=== PATIENT | male | born 1970 | race Caucasian/White ===

== ENCOUNTER 2017-06-01 00:46 | Observation (INO) | payer OTHER ==
[2017-06-01] MEDS ORDERED: HYDROCODONE/APAP 5/325 TAB PO ONE (01:08)
[2017-06-01] MEDS ORDERED: ONDANSETRON 4 MG/2 ML VIAL IVP ONE (01:19)
[2017-06-01] MEDS ORDERED: fentaNYL 100 MCG/2 ML INJ IVP ONE (01:19)
--- NOTE | 2017-06-01 01:27 | EDPHY ---
H & P Stated Complaint: laceration to left ring finger s/p crush between wall and cabnit HPI/ROS: HPI CHIEF COMPLAINT: Left 3rd digit pain swelling possible infection HISTORY OF PRESENT ILLNESS: This patient is a 46-year-old male, otherwise healthy, denies any significant medical history does not take any daily medications nondiabetic he presents emergency room with pain and swelling redness to the left 3rd digit. Patient tells me that on Friday he was carrying a piece of furniture this piece of furniture pinch his hand against a wall he sustained a laceration to the palmar surface diagonally across the base of the 3rd digit. He did not seek any medical attention. He had a Band-Aid over this covering it. He now presents emergency room because he has worsening 3rd digit pain over today. No fever. However of note he presents emergency room with a finger that is held in flexed position, it is sausage digit like, mild redness and warmth and has exquisite tenderness down the tendon, also tenderness with extension concerning for acute flexor tenosynovitis. He does tell me his tetanus shot is up-to-date. He has not seen a pus from the site. Patient is right-hand dominant. 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 Exam Constitutional triage nursing summary reviewed, vital signs reviewed, awake/ alert. Eyes normal conjunctivae and sclera, EOMI, PERRLA. HENT normal inspection, atraumatic, moist mucus membranes, no epistaxis, neck supple/ no meningismus, no raccoon eyes. Respiratory clear to auscultation bilaterally, normal breath sounds, no respiratory distress, no wheezing. Cardiovascular rate normal, regular rhythm, no murmur, no edema, distal pulses normal. Gastrointestinal soft, non-tender, no rebound, no guarding, normal bowel sounds, no distension, no pulsatile mass. Genitourinary no CVA tenderness. Musculoskeletal left hand: 3rd digit is swollen rather diffusely, there is a laceration present palmar surface the base of the 3rd digit 3rd digit is swollen sausage like, it is warm and erythematous there is no mariela pus. It is held in flexion, has exquisite pain with extension. no midline vertebral tenderness, full range of motion, no calf swelling, no tenderness of extremities , no meningismus, good pulses, neurovascularly intact. Skin pink, warm, & dry, no rash, skin atraumatic. Neurologic awake, alert and oriented x 3, AAOx3, moves all 4 extremities equally, motor intact, sensory intact, CN II-XII intact, normal cerebellar, normal vision, normal speech. Psychiatric normal mood/affect. Heme/Lymph/Immune no lymphadenopathy. Differential Diagnosis: Includes but is not limited to in a particular order, flexor tenosynovitis, finger infection, bony abnormality, osteomyelitis, Medical Decision Making: Plan for this patient digital x-ray, pain control, IV establishment blood draw, will touch base with Hand surgery as I feel that this patient is flexor tenosynovitis that needs emergent washout. Re-evaluation: 0126AM: I spoke with Dr. Clemons with [facility] he has agreed to come and see and evaluate the patient at this time I did explain concerned about flexor tenosynovitis and hand infection. He agrees with my assessment and will come and see and evaluate the patient most likely take the patient to the operating room for washout. He requested that I start an IV and do basic blood work however hold off on antibiotics so he can get appropriate culture. Patient updated about this and is agreeable for plan. Agrees for admission and OR. ED x-ray left 3rd digit. Negative for fracture. Negative for osteomyelitis. However visible soft tissue swelling. Image interpreted by myself Source: Patient - Personal History Current Tetanus/Diphtheria Vaccine: Yes Current Tetanus Diphtheria and Acellular Pertussis (TDAP): Yes Tetanus Vaccine Date: WITHIN 10 YRS - Medical/Surgical History Hx Asthma: No Hx Chronic Respiratory Disease: No Hx Diabetes: No Hx Cardiac Disease: No Hx Renal Disease: No Hx Cirrhosis: No Hx Alcoholism: No Hx HIV/AIDS: No Hx Splenectomy or Spleen Trauma: No Other PMH: denies - Social History Smoking Status: Never smoked Constitutional: Initial Vital Signs Temperature (C) 36.9 C 06/01/17 00:47 Heart Rate 80 06/01/17 00:47 Respiratory Rate 18 06/01/17 00:47 Blood Pressure 107/95 H 06/01/17 00:47 O2 Sat (%) 94 06/01/17 00:47 O2 Delivery Mode Room Air Allergies/Adverse Reactions: No Known Allergies Allergy (Unverified 06/01/17 00:50) Home Medications: Medication Instructions Recorded Cephalexin [Keflex (*)] 500 mg PO Q6HRS #0 cap 06/01/17 Hydrocodone/APAP 5/325 [[place] 2 tab PO Q4HRS PRN #0 tab 06/01/17 5/325 (*)] Medical Decision Making - Data Points Laboratory Results: Laboratory Results 06/01/17 01:00 06/01/17 01:00 Medications Given: Discontinued Medications Hydrocodone Bitart/Acetaminophen ([place] 5/325) 1 tab PO EDNOW ONE Stop: 06/01/17 01:09 Last Admin: 06/01/17 01:40 Dose: Not Given Fentanyl (Sublimaze) 50 mcg IVP EDNOW ONE Stop: 06/01/17 01:20 Last Admin: 06/01/17 01:23 Dose: 50 mcg Cefazolin Sodium/Dextrose (Ancef 2 Gm (Premix)) 100 mls @ 200 mls/hr IV 0300, 1100,1900 GIOVANNY PRN Reason: Protocol Stop: 07/01/17 10:59 Last Admin: 06/01/17 10:32 Dose: 100 mls Ondansetron HCl (Zofran) 4 mg IVP EDNOW ONE Stop: 06/01/17 01:20 Last Admin: 06/01/17 01:23 Dose: 4 mg Departure - Departure Disposition: [facility] Acute Clinical Impression: Flexor tenosynovitis of finger Condition: Good
[2017-06-01 01:34] LABS: % IMMATURE GRANULYOCYTES 0.2 % (0.0-1.1); ABSOLUTE IMMATURE GRANULOCYTES 0.02 10^3/uL (0.00-0.10); ADD DIFF? NO; ADD MORPH? NO; ADD SCAN? NO; ATYPICAL LYMPHOCYTE FLAG 10 (0-99); FRAGMENT RBC FLAG 0 (0-99); HEMATOCRIT 41.1 % (40.0-51.0); HEMOGLOBIN 14.3 g/dL (13.7-17.5); LEFT SHIFT FLG 0 (0-99); LIPEMIA HEMOLYSIS FLAG 90 (0-99); MEAN CELL HEMOGLOBIN 31.9 pg (27.9-34.1); MEAN CELL HEMOGLOBIN CONCENTR. 34.8 g/dL (32.4-36.7); MEAN CELL VOLUME 91.7 fL (81.5-99.8); MEAN PLATELET VOLUME 10.4 fL (8.7-11.7); PLATELET CLUMPS FLAG 10 (0-99); PLATELET COUNT 267 10^3/uL (150-400); RED BLOOD CELL COUNT 4.48 10^6/uL (4.40-6.38); RED CELL DISTRIBUTION WIDTH 12.5 % (11.5-15.2)
[2017-06-01 01:39] LABS: ANION GAP 14 mEq/L (8-16); C-REACTIVE PROTEIN < 5.0 mg/L (<10.0); CALCIUM 9.7 mg/dL (8.5-10.4); CARBON DIOXIDE 22 mEq/l (22-31); CHLORIDE 108 mEq/L (97-110); GLOMERULAR FILTRATION RATE > 60; GLUCOSE 91 mg/dL (70-100); POTASSIUM 4.1 mEq/L (3.5-5.2); SODIUM 144 mEq/L (134-144)
[2017-06-01 01:49] LABS: SEDIMENTATION RATE 3 MM/HR (0-15)
--- NOTE | 2017-06-01 02:23 | PDANEPAE ---
ANE History of Present Illness Left third finger I and D ANE Past Medical History - Cardiovascular History Hx Hypertension: No Hx Arrhythmias: No Hx Chest Pain: No Hx Coronary Artery / Peripheral Vascular Disease: No Hx CHF / Valvular Disease: No - Pulmonary History Hx COPD: No Hx Asthma/Reactive Airway Disease: No Hx Recent Upper Respiratory Infection: No Hx Oxygen in Use at Home: No Hx Sleep Apnea: No - Endocrine History Hx Diabetes: No Hypothyroid: No Hyperthyroid: No Obesity: no ANE Review of Systems - Exercise capacity Exercise capacity: >=4 METS ANE Patient History - Allergies Allergies/Adverse Reactions: No Known Allergies Allergy (Unverified 06/01/17 00:50) - Home Medications Home Medications: NK [No Known Home Meds] 06/01/17 [Last Taken Unknown] - NPO status NPO Since - Liquids (Date): 05/31/17 NPO Since - Liquids (Time): 18:00 NPO Since - Solids (Date): 05/31/17 NPO Since - Solids (Time): 18:00 - Anes Hx Anes Hx: no prior problems - Smoking Hx Smoking Status: Never smoked - Alcohol Use Alcohol Use: Occasionally - Family Anes Hx Family Anes Hx: none ANE Labs/Vital Signs - Labs Result Diagrams: 06/01/17 01:00 06/01/17 01:00 - Vital Signs Blood Pressure: 125/66 Heart Rate: 71 Respiratory Rate: 16 O2 Sat (%): 97 Height: 180.34 cm Weight: 74.843 kg ANE Physical Exam - Airway Neck exam: FROM Mallampati Score: Class 1 Mouth exam: normal dental/mouth exam - Pulmonary Pulmonary: no respiratory distress - Cardiovascular Cardiovascular: regular rate and rhythym - ASA Status ASA Status: I
[2017-06-01] MEDS ORDERED: BUPIVACAINE 0.5% 30 ML SDV ONE (02:28)
[2017-06-01] MEDS ORDERED: MIDAZOLAM 2 MG/2 ML VIAL ONE (02:32)
[2017-06-01] MEDS ORDERED: fentaNYL 100 MCG/2 ML INJ ONE (02:32)
[2017-06-01] MEDS ORDERED: PROPOFOL/EMULSION 500 MG/50 ML BOTTLE IV ONE (02:32)
[2017-06-01] MEDS ORDERED: ceFAZolin 1 GM VIAL ONE ×2 (02:56)
[2017-06-01] MEDS ORDERED: METOCLOPRAMIDE 10 MG/2 ML VIAL ONE (03:19)
[2017-06-01] MEDS ORDERED: ONDANSETRON 4 MG/2 ML VIAL ONE (03:19)
[2017-06-01] MEDS ORDERED: HYDROCODONE/APAP 5/325 TAB PO PRN (03:54)
--- NOTE | 2017-06-01 03:58 | POSTOPPROG ---
Post Op Note Date of Operation: 06/01/17 Surgeon: Tc Clemons Anesthesia: LMA Pre-op Diagnosis: flexor tenosynovitis left middle finger Post-op Diagnosis: same Procedure: I&D same Inf/Abcess present in the surg proc area at time of surgery?: Yes Depth: Deep Incisional (Fascial) EBL: Minimal Drains: [place]
[2017-06-01] MEDS ORDERED: ceFAZolin 2 GM/DEXTROSE 100 ML IV SCH ×2 (06:00→11:00)
--- NOTE | 2017-06-01 08:21 | GCON ---
[f rep st] CONSULTATION EMERGENCY ROOM CONSULTATION. DATE OF CONSULTATION: 06/01/2017 CHIEF COMPLAINT: Infection left middle finger. HISTORY OF PRESENTING COMPLAINT: Patient is a 46-year-old, left-hand dominant man, who injured the volar surface of his left finger carrying a cabinet up a stairway 3 nights ago. At that time, he rosenthal d sustained a cut but did not think much of it. Today he was working and noticed increasing pain in the left middle finger and presented to the emergency room earlier this evening. PAST MEDICAL HISTORY: Unremarkable. MEDICATIONS: He is on no medications. ALLERGIES: Has no known allergies. IMMUNIZATIONS: He believes he is up to date on his tetanus. PHYSICAL EXAMINATION: GENERAL: He is a healthy-looking 46-year-old male. CARDIOVASCULAR: Heart vinh nds are normal. RESPIRATORY: Shows clear with good air entry. VITAL SIGNS: He is afebrile. LEFT MIDDLE FINGER: Is held in a slightly flexed position and he has exquisite pain on attempting to fur ther flex it. There is moderate discomfort with passive extension. There is moderate tenderness ov er the tendon sheath. The laceration itself is on the middle segment of the finger. Its transverse looks quite clean actually. There is no axial compression tenderness. X-ray exam does not show any sign of foreign bodies. IMPRESSION: Purulent tenosynovitis left middle finger. PLAN: Debridement and irrigation in the operating room emergently. /[id number]/MODL
--- NOTE | 2017-06-01 11:07 | POSTANESTH ---
Post Anesthetic Evaluation Cardiovascular Status: Normal, Stable Respiratory Status: Normal, Stable Level of Consciousness/Mental Status: Can Participate in Eval Pain Control: Adequate, Prn Tx Ordered Nausea/Vomiting Control: Adequate, Prn Tx Ordered Complications Possibly Related to Anesthesia: None Noted
--- NOTE | 2017-06-01 12:15 | SOAPPROG ---
SOAP Progress Note Assessment/Plan: Assessment:Resolving tenosynovitis. Plan:Discharge on oral antibiotics. 06/01/17 12:14 Subjective: Minimal pain. Feeling well. Objective: Hand looks good. Still numb from bupivicaine intraop. Moving well. Vital Signs Temp Pulse Resp BP Pulse Ox 36.6 C 78 15 86/53 L 92 06/01/17 07:18 06/01/17 08:25 06/01/17 08:25 06/01/17 08:25 06/01/17 08:25 Microbiology 06/01/17 02:55 Gram Stain - Final Finger - Anaerobic Tube/Swab 06/01/17 02:55 Gram Stain - Final Finger - Anaerobic Tube/Swab 05/31/17 06/01/17 06/02/17 05:59 05:59 05:59 Intake Total 1020 Balance 1020 ICD10 Worksheet Patient Problems: Problems Problem Status Onset Flexor tenosynovitis of finger Acute
[2017-06-01 12:23] VITALS: BP 115/69; PULSE 79; RESP 16; TEMP 98.5; O2SAT 98
--- NOTE | 2017-06-01 15:15 | GOP ---
[f rep st] OPERATIVE REPORT DATE OF OPERATION: 06/01/2017 SURGEON: Tc Clemons MD PREOPERATIVE DIAGNOSIS: Flexor tenosynovitis, left middle finger. POSTOPERATIVE DIAGNOSIS: Flexor tenosynovitis, left middle finger. PROCEDURE PERFORMED: Incision and drainage, flexor sheath left middle finger. FINDINGS: DESCRIPTION OF PROCEDURE: With the patient lying supine under general anesthesia, the left hand and forearm were prepped and draped in the usual fashion. The hand was elevated for 90 seconds and cristela rniquet was inflated to 250 mmHg. An incision was made at the distal palmar crease in the ray of th e middle finger and dissection was taken down to the flexor sheath. The A1 gaurav was opened and cl oudy synovial fluid was encountered and was swabbed for Gram stain and culture. The existing lacera tion on the middle segment of the finger was pulled open bluntly, and with relatively gentle retract ion, it was opened right down to the flexor sheath which itself was opened. Again, cloudy synovial fluid was encountered and this was also swabbed. A 22-gauge Angiocath was then introduced into the flexor sheath proximally and several hundred cubic centimeters of saline was washed through the vera th. The 22-gauge Angiocath was then replaced with a 24-gauge Angiocath with suitable wings on it fo r suturing, and this was sutured down to the palmar skin. Loose closure of the proximal incision wa s then carried out with 4-0 Prolene and the distal incision had a portion of a small [place]anda drain p laced which was sutured with 5-0 Prolene. The ability to irrigate through the proximal catheter and out at the distal [place] drain was demonstrated, and then dressing of Xeroform gauze was applied, followed by a fiberglass volar slab splint. The procedure was tolerated well. Estimated blood loss was less than 10 mL. /[id number]/MODL
[2017-06-01] MEDS ORDERED: CEPHALEXIN 500 MG CAP PO SCH (18:00)
== END 2017-06-01 13:05 | disposition home or self-care (01) ==
LOC: F1N 04:30
PROVIDERS: ADMIT Plastic Surgery; ATTEND Plastic Surgery
PROC: 0L980ZZ Drainage of Left Hand Tendon, Open Approach (ICD-10-PCS; principal; 2017-06-01 02:30)
DX: M65.842 Other synovitis and tenosynovitis, left hand (principal); S61.213D Laceration without foreign body of left middle finger without damage to nail, subsequent encounter; W23.1XXD Caught, crushed, jammed, or pinched between stationary objects, subsequent encounter; Y93.89 Activity, other specified; Y99.8 Other external cause status
CPT/HCPCS: 26020; 73140; G0378; J0690; J2250; J2405; J2704; J2765; J3010